=== PATIENT | female | born 1975 | race Caucasian/White ===

== ENCOUNTER 2016-07-13 14:42 | Day surgery (SDC) | payer OTHER ==
[~2016-07-13] VITALS: Ht 170.2 cm; Wt 111.0 kg
[2016-07-13] MEDS ORDERED: fentaNYL-PF 50 mCg/mL 2 mL Inj ONE (14:43)
--- NOTE | 2016-07-13 15:09 | PCM.HPANE ---
Patient Data Surgeon Admitting Provider: Attending Provider:Judy Null MD Primary Care Physician:Paradise Nicholas MD Other Provider:Wilner Jackson Anesthesia Reason for Visit Common Bile Duct Stone Ht/WT & BMI Body Mass Index Allergies Coded Allergies: amoxicillin (Verified Allergy, Intermediate, hives, 07/13/16) Stop/Bang MARY Risk Assessment: Low Risk, <3 Yes Risk Assessment Category Category 1A: Patient has history of documented sleep apnea, and HAS NOT received any narcotic, sedative or anesthesia administration during this stay. Category 1B: Patient has history of documented sleep apnea, and HAS received any narcotic , sedative or anesthesia administration during this stay Category 2: Patient has SUSPECTED Obstructive Sleep Apnea, and HAS received any narcotic , sedative or anesthesia administration during this stay. Category 3: Patient has SUSPECTED Obstructive Sleep Apnea and HAS NOT received narcotic, sedative or anesthesia administration during this stay. Category 4: Outpatient in Procedural Areas with known sleep apnea or who screen positive for High Risk via the STOP/BANG questionnaire. Exam Exam General Appearance: Alert, Oriented X3, Cooperative, No Acute Distress HEENT/AIRWAY: MP 2 Lungs: Clear to Auscultation, Normal Air Movement Heart: Exam Unremarkable, Regular Rate/Rhythm, No Murmurs/Rubs/Gallops Plan Impression Patient chart reviewed, patient interviewed and anesthestic plan with risks, benefits, and alternatives discussed, and informed consent obtained. ASA Physical Status: ASA2 Mod Systemic Disease Anesthetic Plan: GA Bene/Risks/Altern/Consents: Yes HP Complete Prior to Induction: Yes Vasu Fernandez MD Jul 13, 2016 15:09
[2016-07-13] MEDS ORDERED: Lactated Ringer's 1,000 ML IV ONE ×2 (15:24→17:19)
[2016-07-13 15:32] VITALS: BP 117/70; PULSE 80; RESP 16; O2SAT 96
[2016-07-13 16:50] VITALS: BP 128/80; PULSE 82; RESP 14; O2SAT 97
[2016-07-13 17:00] VITALS: BP 110/74; PULSE 80; RESP 12; O2SAT 98
--- NOTE | 2016-07-13 17:03 | DRSVH ---
PROCEDURE: X-RAY E.R.C. BILIARY DUCTS ([id number]) INDICATIONS: REMOVAL OF STONES TECHNIQUE: Fluoroscopic spot films were acquired by the gastroenterology service during ERCP procedu re. COMPARISON: None. FINDINGS: 3 sequential images show cholangiographic cannulation of the common duct, with contrast inj ection, and guidewire placement, with subsequent presumed balloon sweeping of the common duct. IMPRESSION: Cholangiographic sequence as above. Dictated by: Zeus Reyez M.D. on 07/13/2016 at 17:01 Approved by: Zeus Reyez M.D. on 07/13/2016 at 17:01
[2016-07-13] MEDS ORDERED: Lactated Ringer's 1,000 ML IV SCH (17:04)
[2016-07-13] MEDS ORDERED: Lactated Ringer's 500 ML IV PRN (17:04)
[2016-07-13] MEDS ORDERED: hydrALAZINE 20 mg/mL Inj IVPUSH PRN (17:05)
[2016-07-13] MEDS ORDERED: fentaNYL-PF 50 mCg/mL 2 mL Inj IVPUSH PRN (17:05)
[2016-07-13] MEDS ORDERED: HYDROmorphone 1 mg/mL Inj IVPUSH PRN (17:05)
[2016-07-13] MEDS ORDERED: MetoCLOpramide 5 mg/mL 2 mL Inj IVPUSH PRN (17:05)
[2016-07-13] MEDS ORDERED: Ondansetron 2 mg/mL 2 mL Inj IVPUSH PRN (17:05)
[2016-07-13] MEDS ORDERED: Phenylephrine 10,000 mCg/mL Inj IVPUSH PRN (17:05)
[2016-07-13] MEDS ORDERED: Labetalol 5 mg/mL 4 mL Inj IV PRN (17:05)
[2016-07-13] MEDS ORDERED: Atropine 0.4 mg/mL Inj IVPUSH PRN (17:05)
[2016-07-13] MEDS ORDERED: EPHEDrine Sulfate 50 mg/mL Inj IVPUSH PRN (17:05)
[2016-07-13] MEDS ORDERED: Dexamethasone 4 mg/mL Inj IVPUSH PRN (17:05)
--- NOTE | 2016-07-13 17:05 | PCM.ANEP2 ---
Post Anesthesia Evaluation ASA/CMS Post Anesthesia VS in Patient's Normal Range?: Yes Resp Stable; Airway Patent?: Yes CV Function & Hydration Stable: Yes Mental Status Recovered?: Yes Pain control Satisfactory?: Yes N/V Control Satisfactory?: Yes Vasu Fernandez MD Jul 13, 2016 17:05
--- NOTE | 2016-07-13 17:05 | PCM.ANEP1 ---
Post Anesthesia Phase 1 PACU Phase 1 Assessment Vital Signs Vital Signs Date Time Temp Pulse Resp B/P Pulse Ox O2 Delivery O2 Flow Rate FiO2 07/13/16 16:50 36.2 82 14 128/80 97 Simple Mask 8 07/13/16 15:32 36.8 80 16 117/70 96 Room Air Anesthetic Administered: GA Level of Alertness: Awake, talking EASON's with Equal Strength: Yes Pain: No Nausea or Vomiting: No Oxygen Delivery: Simple Mask Lungs: Clear to Auscultation, Normal Air Movement Vasu Fernandez MD Jul 13, 2016 17:05
[2016-07-13 17:10] VITALS: BP 123/68; PULSE 77; RESP 14; O2SAT 98
[2016-07-13 17:23] VITALS: BP 117/67; PULSE 77; RESP 12; O2SAT 98
--- NOTE | 2016-07-14 00:23 | ENDO ---
[address] [address] ENDOSCOPY PROCEDURE PATIENT: RACHAEL GARCIA : 1975 MR#: [id number] ADMIT: 07/13/2016 JOB ID: [id number] DATE OF PROCEDURE: PROCEDURE: Endoscopic retrograde cholangiopancreatography. INDICATION: Choledocholithiasis. The patient is a 41-year-old woman who presented to an outside hospital with complaint of epigastric pain that had been present for several days prior to her emergency department visit. It was associated with nausea and vomiting. On admission there she had lab testing done which revealed a mild leukocytosis. She, however, did not report any fever. Her liver function tests showed mild elevation in her aminotransferases. The remainder of her liver function tests were normal. She had an abdominal ultrasound done which showed cholelithiasis, as well as two echogenic foci in the common bile duct. I was subsequently called by the emergency department physician there after General Surgery had been consulted at the outside hospital, who recommended that the patient needed an ERCP. This patient was then subsequently brought into the endoscopy suite as an outpatient for ERCP today. ANESTHESIA: Please see anesthesia report for details regarding general anesthesia. INSTRUMENTS USED: [id number], as well as 2T therapeutic upper endoscope. PROCEDURE DETAILS: After informed consent was obtained, the patient was brought to the GI suite, where she was placed under general anesthesia. She was then placed in the standard ERCP position. A bite block was placed. The ERCP scope was then advanced through the bite block and advanced without difficulty to the second portion of duodenum. The ampulla was identified and appeared unremarkable. Selective biliary cannulation was achieved with an Olympus CleverCut tome using wire guidance. Initial cholangiogram revealed an approximately 7 mm common bile duct. There was filling of the cystic duct and gallbladder. The intrahepatics appeared normal. No filling defects were appreciated. Next, a moderate-sized sphincterotomy was performed, followed by balloon sweep with an inject from below balloon. Balloon sweep revealed no stones or sludge. Final cholangiogram demonstrated findings as described above. IMPRESSION: Impression status post endoscopic retrograde cholangiopancreatography with sphincterotomy and balloon sleep sweep, without evidence of biliary stones and sludge. RECOMMENDATIONS: General Surgery consult for cholecystectomy. COMPLICATIONS: None. ESTIMATED BLOOD LOSS: Zero.
[2016-07-16] MEDS ORDERED: [UNRECOGNIZED DRUG - OTHER] INTRAUTERI (15:36)
== END 2016-07-13 23:59 | disposition home or self-care (01) ==
LOC: END 14:42
PROVIDERS: ATTEND Internal Medicine Gastroenterology
DX: K80.50 Calculus of bile duct without cholangitis or cholecystitis without obstruction (principal)
CPT/HCPCS: 43262; 74328; J2250; J7120

== ENCOUNTER 2016-07-19 06:56 | Day surgery (SDC) | payer OTHER ==
[2016-07-19] VITALS (12 sets, daily range): BP systolic 91–118; BP diastolic 53–81; PULSE 44–64; RESP 11–18; O2SAT 95–100
[~2016-07-19] VITALS: Ht 170.2 cm; Wt 111.5 kg
[~2016-07-19 06:56] MED LIST: Levofloxacin 500 mg/100 mL D5W IV ONE; [UNRECOGNIZED DRUG - OTHER] INTRAUTERI
[2016-07-19] MEDS ORDERED: Ondansetron 2 mg/mL 2 mL Inj ONE (06:57)
[2016-07-19] MEDS ORDERED: Dexamethasone 4 mg/mL Inj ONE (06:57)
[2016-07-19] MEDS ORDERED: fentaNYL-PF 50 mCg/mL 2 mL Inj ONE (06:57)
[2016-07-19] MEDS ORDERED: Propofol 10,000 mCg/mL 20 mL Inj ONE (06:57)
[2016-07-19] MEDS ORDERED: Rocuronium 10 mg/mL 5 mL Inj ONE (06:57)
[2016-07-19] MEDS ORDERED: Lactated Ringer's 1,000 ML IV ONE ×2 (07:00→07:21)
[2016-07-19] MEDS ORDERED: LEVO500T79 PO (07:48)
--- NOTE | 2016-07-19 08:57 | PCM.HPANE ---
Patient Data Date of Service: Jul 19, 2016 Surgeon Admitting Provider: Attending Provider:Wolfgang Evans MD Primary Care Physician:Paradise Nicholas MD Other Provider:Wilner Jackson Anesthesia Reason for Visit Cholelithiasis Ht/WT & BMI Height (Feet): 5 Height (Inches): 7.00 Weight (Kilograms): 111.5 Body Mass Index 38.00 Allergies Coded Allergies: amoxicillin (Verified Allergy, Intermediate, hives, 07/13/16) Past Anesthesia History Anesthesia History: Denies:: Abnormal Airway, Anesthesia Reactions, Difficult Intubation, Fam Anesthesia Reaction, Fam Malignant Hypertherm, Malignant Hyperthermia Diabetes History Hx Diabetes?: No MRSA MRSA: No Medications Hypertension Medication: No Home Meds Incl Beta Varun: No Reported Medications Levofloxacin 500 Mg [id number] Mg PO DAILY 07/19/16 [paraguard T 380] No Conflict Check Intrauteri Daily 07/16/16 History HEENT History: Denies:: Abnormal Airway Cataracts Difficult Intubation Dysphagia Glaucoma Hearing Problem Sinus Problem Hx of Heart Problems?: No Cardiovascular History: Denies:: AICD Abdominal Aortic Aneurism Atrial Fibrillation Congestive Heart Failure Coronary Artery Disease Edema Heart Murmur Hypertension Irregular Heartbeat Pacemaker Peripheral Vascular Rheumatic Fever Hx of Respiratory Problem?: No Respiratory History: Denies:: Asthma COPD Emphysema Oxygen Administration Pneumonia Tuberculosis Use of C-PAP Machine Use of Inhalers / NEBS Hx Neurologic Problems?: No Neurological History: Denies:: Alzheimer's Disease CVA Dementia Headaches Multiple Sclerosis Parkinson's Disease Seizures TIA Hx of GI Problems?: Yes Gastrointestinal History: Positive for:: Gall Bladder Disease (current admission problem, ERCP here 07-13-16) Denies:: Gastroesphageal Reflux Hx of Problems?: No Genitourinary History: Denies:: Kidney Stones Urinary Tract Infection Female Hx: Denies:: Currently Problems with Breasts? Skin History: Denies:: History Skin Disorders? Pressure Ulcers Hx Musculoskeletal Problems?: No Musculoskeletal History: Denies:: Fibromyalgia Joint Replacement Musculoskeletal Trauma Myasthenia Gravis Osteoarthritis Rheumatoid Arthritis Psycho Social History: Denies:: Anxiety Hx Depression Hx Surgeries?: Yes (TONSILS AT AGE 10) Hx Any Other Health Problems?: Yes Other History: Denies:: Cancer Thyroid Disease History Blood Transfusions: Positive for:: Accept Blood Products? Denies:: Blood Transfusions Hx Diabetes: No Hx Alcohol Use: NoHx Substance Use: No Smoking Status: Never Smoker Have You Smoked inLast 12 mo: No Stop/Bang S-Snoring: Do You Snore Loudly: No T-Tired: feel tired, fatigued: No O-Obsered: Observed not breath: No P-Blood Pressure: treated: No B- Body Mass Index > 35 kg/m2: Yes A- Age over 50: No N- Neck Large Circumference: No G- Gender Male: No MARY Total Score: 1 MARY Risk Assessment: Low Risk, <3 Yes Risk Assessment Category Category 1A: Patient has history of documented sleep apnea, and HAS NOT received any narcotic, sedative or anesthesia administration during this stay. Category 1B: Patient has history of documented sleep apnea, and HAS received any narcotic , sedative or anesthesia administration during this stay Category 2: Patient has SUSPECTED Obstructive Sleep Apnea, and HAS received any narcotic , sedative or anesthesia administration during this stay. Category 3: Patient has SUSPECTED Obstructive Sleep Apnea and HAS NOT received narcotic, sedative or anesthesia administration during this stay. Category 4: Outpatient in Procedural Areas with known sleep apnea or who screen positive for High Risk via the STOP/BANG questionnaire. Exam Exam Vital Signs Vital Signs Date Time Temp Pulse Resp B/P Pulse Ox O2 Delivery O2 Flow Rate FiO2 07/19/16 07:38 35.7 60 18 111/62 98 Room Air General Appearance: Alert, Oriented X3, Cooperative, No Acute Distress HEENT/AIRWAY: MP 2 Lungs: Normal Air Movement Heart: Exam Unremarkable Meds/Labs/Diagnostics Admission Meds Current Medications Lactated Ringer's (Lr) 1,000 ml @ ud STK-MED ONCE IV Last administered on 07/19t 07:00; Start 07/19/16 at 07:00; Stop 07/19/16 at 07:06; Status DC Plan Impression Patient chart reviewed, patient interviewed and anesthestic plan with risks, benefits, and alternatives discussed, and informed consent obtained. NPO Status: WATER AT 1030PM ASA Physical Status: ASA2 Mod Systemic Disease Anesthetic Plan: GA Bene/Risks/Altern/Consents: Yes HP Complete Prior to Induction: Yes Cody Mason MD Jul 19, 2016 08:05
[2016-07-19] MEDS ORDERED: Bupivacaine-MPF 0.5% 30 mL Inj INFILTRATE ONE (09:51)
--- NOTE | 2016-07-19 11:03 | PCM.SURGPO ---
Immediate Operative Note Date of Surgery: Jul 19, 2016 Pre Operative Diagnosis Cholelithiasis, possible cholecystitis Post Operative Diagnosis Cholecystitis Procedure Laparoscopic Cholecystectomy with intraop cholangiogram Surgeon and Video Game Tester Surgeon: Wolfgang Evans MD Assistants: None Findings Inflamed, Stones, Normal Cholangiogram, No Hydrops Complications There were no periprocedural complications identified. Surgical Specimen Removed: Yes Specimen sent to Pathology: Yes Surgical Specimen description: Gallbladder with stones Anesthetic Administered: GA Grafts, Implants: None Output, Estimated Blood Loss: 2 Blood Admin during surgery: No Attending Statement The Human Resources Generalist was medically necessary for the completion of the operation Wolfgang Evans MD Jul 19, 2016 11:03
[2016-07-19] MEDS ORDERED: OXYC5TAB72 PO (11:25)
[2016-07-19] MEDS ORDERED: POLY17PO6 PO (11:25)
[2016-07-19] MEDS ORDERED: Lactated Ringer's 1,000 ML IV SCH (11:31)
[2016-07-19] MEDS ORDERED: Lactated Ringer's 500 ML IV PRN (11:31)
--- NOTE | 2016-07-19 11:32 | PCM.ANEP1 ---
Post Anesthesia Phase 1 PACU Phase 1 Assessment Date of Service: Jul 19, 2016 Vital Signs Vital Signs Date Time Temp Pulse Resp B/P Pulse Ox O2 Delivery O2 Flow Rate FiO2 07/19/16 11:25 36.6 14 107/71 100 Simple Mask 8 07/19/16 11:20 11 105/81 97 Simple Mask 8 07/19/16 11:17 36.4 60 11 91/70 100 Simple Mask 8 07/19/16 07:38 35.7 60 18 111/62 98 Room Air Anesthetic Administered: GA Level of Alertness: Awake, talking EASON's with Equal Strength: Yes Pain: No Nausea or Vomiting: No Oxygen Delivery: Simple Mask Lungs: Normal Air Movement Cody Mason MD Jul 19, 2016 11:32
[2016-07-19] MEDS ORDERED: Labetalol 5 mg/mL 4 mL Inj IV PRN (11:35)
[2016-07-19] MEDS ORDERED: HYDROmorphone 1 mg/mL Inj IVPUSH PRN (11:35)
[2016-07-19] MEDS ORDERED: EPHEDrine Sulfate 50 mg/mL Inj IVPUSH PRN (11:35)
[2016-07-19] MEDS ORDERED: fentaNYL-PF 50 mCg/mL 2 mL Inj IVPUSH PRN (11:35)
[2016-07-19] MEDS ORDERED: Atropine 0.4 mg/mL Inj IVPUSH PRN (11:35)
[2016-07-19] MEDS ORDERED: Phenylephrine 10,000 mCg/mL Inj IVPUSH PRN (11:35)
[2016-07-19] MEDS ORDERED: Dexamethasone 4 mg/mL Inj IVPUSH PRN (11:35)
[2016-07-19] MEDS ORDERED: MetoCLOpramide 5 mg/mL 2 mL Inj IVPUSH PRN (11:35)
[2016-07-19] MEDS ORDERED: hydrALAZINE 20 mg/mL Inj IVPUSH PRN (11:35)
[2016-07-19] MEDS ORDERED: Ondansetron 2 mg/mL 2 mL Inj IVPUSH PRN (11:35)
--- NOTE | 2016-07-19 11:44 | PCM.ANEP2 ---
Post Anesthesia Evaluation ASA/CMS Post Anesthesia Date of Service: Jul 19, 2016 VS in Patient's Normal Range?: Yes Resp Stable; Airway Patent?: Yes CV Function & Hydration Stable: Yes Mental Status Recovered?: Yes Pain control Satisfactory?: Yes N/V Control Satisfactory?: Yes Cody Mason MD Jul 19, 2016 11:44
--- NOTE | 2016-07-19 13:07 | DRSVH ---
PROCEDURE: X-RAY OPERATIVE CHOLANGIOGRAM ([id number]) INDICATIONS: CHOLELITHIASIS COMPARISON: [facility], CR, XR ERC BILIARY DUCTS, 07/13/2016, 17:14. Formerly [facility], [place] , ABDOMEN COMPLETE, 07/13/2016, 10:05. FINDINGS: Biliary ducts: The surgeon injected contrast into the biliary ducts after cannulation of the cystic duct stump. Visualized intra- and extrahepatic bile ducts are normal in caliber, without strictures. Persistent mobile rounded intraluminal filling defect seen throughout the course of the extrahepati c bile duct. No evidence for iatrogenic ductal injury. Duodenum: Contrast flows promptly through the sphincter of Oddi into the duodenum, which appears nor mal in caliber. IMPRESSION: Gas bubble versus retained stone within the extrahepatic bile duct. Correlate with real time examination. Dictated by: Reddy Calvert RRA Interpreted: Mary Centeno MD on 07/19/2016 at 13:07 Transcribed by: MISSY on 07/19/2016 at 13:07 Approved by: Mary Centeno MD, PhD on 07/19/2016 at 17:11
--- NOTE | 2016-07-19 21:29 | OP ---
[address] [address] OPERATIVE REPORT PATIENT: RACHAEL GARCIA : 1975 MR#: [id number] ADMIT: 07/19/2016 JOB ID: [id number] DATE OF SURGERY: 07/19/2016 PREOPERATIVE DIAGNOSIS(ES): Cholelithiasis, possible cholecystitis. POSTOPERATIVE DIAGNOSIS(ES): Cholecystitis. PROCEDURE PERFORMED: Laparoscopic cholecystectomy with intraoperative cholangiogram. SURGEON: Wolfgang Evans MD. TOOL LATHE OPERATOR: Meghana Soto PA-C and Heaven Foley MS3. ANESTHESIA: General endotracheal anesthesia with local. INDICATIONS: The patient is a 41-year-old lady who presented to [facility] emergency department on the morning of July 13, 2016 with severe abdominal pain and nausea. She has not had any fevers. She was diagnosed with possible cholecystitis but ultrasound also questioned the possibility of common bile duct stones prompting a transfer to [facility] where Dr. Bojorquez performed an ERCP. He did not find any obvious common bile duct stones and the cholangiogram filled the cystic duct and the gallbladder. He did perform a sphincterotomy put her on outpatient antibiotic, and I saw her in consultation. After discussing the risks, benefits, and alternatives, she is here today for laparoscopic cholecystectomy with cholangiogram. PROCEDURE DETAILS: She was placed in supine position and underwent smooth induction of general anesthesia. Abdomen was prepped and draped in the usual sterile fashion. Surgical time-out was undertaken using safety checklist, and all were in agreement. We began by making a supraumbilical incision, entered the abdomen using combination of open Ramón technique and Optiview trocar. After obtaining pneumoperitoneum we up sized to a 12 mm port and placed three 5 mm ports in the right lower quadrant and epigastrium under direct vision. We retracted the gallbladder cephalad and to the right and try and dissected the triangle of Calot anteriorly and posteriorly, isolating the cystic duct. The cystic duct was clipped on the specimen side and then a cholangiogram was obtained which showed a normal anatomy with no filling defects. I then clipped the cystic duct doubly on the patient's side and then divided it. There was no big cystic artery that was identified, and the rest of the gallbladder was dissected off the liver bed with the great hemostasis. Then we again detached the gallbladder from the liver bed, we looked for any signs of bleeding and none were found. I then placed the gallbladder in EndoCatch bag and removed it through the umbilical port site, After that, I closed the umbilical port site fascia with [id number] 0-Vicryl suture and all skin incisions were closed with 4-0 Monocryl. Steri-Strips and sterile dressing were applied. Patient was recovered from anesthesia and was taken to the recovery room in stable condition.
[2016-07-20] MEDS ORDERED: Polyethylene Glycol (PEG) 17 Gm Powder PO SCH (08:30)
--- NOTE | 2016-07-21 10:05 | PATH ---
SURGICAL PATHOLOGY Attending Physician:Wolfgang Evans MD CASE STATUS: Signed Out PATIENT NAME: RACHAEL GARCIA PID: [id number] : 1975 DATE COLLECTED:07/19/2016 22:39 SPECIMEN: Gallbladder CLINICAL HISTORY: CHOLETHIASIS 1). GALLBLADDER FINAL DIAGNOSIS: 1.GALLBLADDER: CHOLELITHIASIS WITH ASSOCIATED CHRONIC CHOLECYSTITIS. ICD10 CODE K80.66 GROSS DESCRIPTION: The specimen is received in one formalin filled container labeled with the patient's name, sublabeled "gallbladder" and consists of an intact 11.0 x 4.0 x 4.0 CM gallbladder. The serosa is smooth. The wall is 0.2-0.3 CM in thickness. The mucosa is a dark green in color. The lumen contains a dark green paige mucoid material and greater than 100 yellow multifaceted calculi which range in size from 0.1-1.2 CM in greatest dimension. 5 digital sales representative sections are submitted in one cassette. 07/19/2016 [facility] MICRO DESCRIPTION: See diagnosis. ICD-9 CODES: CPT CODES: 1: 15041 Electronically Signed Out Preston Hernandes MD [facility] Pathology [facility] [address], [place] [address] Technical component performed at [facility], [facility] [address], [place], [address]
== END 2016-07-19 23:59 | disposition home or self-care (01) ==
LOC: SAS 06:56
PROVIDERS: ATTEND Student in an Organized Health Care Education/Training Program
DX: K80.10 Calculus of gallbladder with chronic cholecystitis without obstruction (principal); J45.909 Unspecified asthma, uncomplicated; E66.9 Obesity, unspecified; Z68.39 Body mass index [BMI] 39.0-39.9, adult
CPT/HCPCS: 47563; 74300; J1100; J2250; J2405; J7120; Q9967